=== PATIENT | male | born 1960 | race Caucasian/White ===

== ENCOUNTER → 2021-08-27 13:03 | Outpatient (BNVA) | payer OTHER, SELFPAY | PROVIDERS: Family Provider Family Medicine; PCP Family Medicine; Visit Provider Internal Medicine | DX: I10 Essential (primary) hypertension (principal); R01.1 Cardiac murmur, unspecified; E78.5 Hyperlipidemia, unspecified; Z87.891 Personal history of nicotine dependence | CPT/HCPCS: 99203; 99204 ==

== ENCOUNTER 2021-10-29 07:41 | Outpatient (CLI) | payer OTHER, SELFPAY ==
--- NOTE | 2021-10-29 07:15 | USCV_ITS ---
Sharif Chung Age: 61 Gender: M : 1960 Exam Date: 10/29/2021 07:59 Ordering Phys: Kelvin Aleman M.D ([email or web address]) Technologist: Exam Location: [facility] Indication: chest pain BP: 134 / 84 HR: 64 Rhythm: Sinus Technical Quality: Adequate MEASUREMENTS (Male / Female) Normal Values 2D ECHO LV Diastolic Diameter PLAX 4.3 cm 4.2 - 5.9 / 3.9 - 5.3 cm LV Systolic Diameter PLAX 2.9 cm IVS Diastolic Thickness 1.4 cm 0.6 - 1.0 / 0.6 - 0.9 cm IVS Systolic Thickness 1.5 cm LVPW Diastolic Thickness 1.4 cm 0.6 - 1.0 / 0.6 - 0.9 cm LVPW Systolic Thickness 1.5 cm LVOT Diameter 2.1 cm LV Ejection Fraction 2D Teich 59.2 % LV Ejection Fraction MOD 2C 65.4 % LV Ejection Fraction 2C AL 66.3 % LA Diameter 4.1 cm Aorta at Sinotubular Diameter 3.0 cm IVC Diameter 2.2 cm M-MODE Aortic Annulus Diameter 3.1 cm LA Ao Ratio MM 1.5 MV E Point Septal Separation 0.8 cm DOPPLER AV Peak Velocity 221.0 cm/s LVOT Peak Velocity 129.0 cm/s AV Area Cont Eq vti 2.0 cm squared AV Area Cont Eq pk 1.9 cm squared MV Area PHT 5.0 cm squared Mitral E to A Ratio 0.8 MV E' Velocity 46.5 cm/s Mitral E to MV E' Ratio 7.3 Mitral E to LV E' Lateral Ratio 6.6 Mitral E to LV E' Septal Ratio 8.1 TR Peak Velocity 192.5 cm/s TR Peak Gradient 14.8 mmHg TV Peak E Velocity 85.0 cm/s Right Atrial Pressure 3.0 mmHg Pulmonary Artery Systolic Pressu 17.8 mmHg PV Peak Velocity 77.0 cm/s RV Acceleration Time 0.1 s FINDINGS Left Ventricle Left ventricle is normal in size. LV systolic function is normal with EF of 60 to 65%. No regional wall motion abnormalities are seen. Right Ventricle RV is normal in size and function Right Atrium Normal in size Left Atrium Normal in size Mitral Valve Mitral valve is normal structurally. Mild mitral regurgitation Aortic Valve Structurally normal aortic valve. Mild to aortic stenosis with aortic valve area of 2cm square and mean gradient across aortic valve of 9.2 mmHg. Tricuspid Valve Mild tricuspid regurgitation. Pulmonary artery systolic pressure is normal Pulmonic Valve Not well-visualized Pericardium Normal Aorta Normal in size IVC IVC appears to be normal CONCLUSIONS LV systolic function is normal with EF of 60 to 65%. Mild mitral regurgitation. Mild aortic stenosis with aortic valve area of 2 cm. Mean gradient across aortic valve 9.2 mmHg Mild tricuspid l regurgitation No comparison studies are available Kelvin Aleman MD (Electronically Signed) Final Date: 12 November 2021 15:19 S
== END 2021-10-29 07:42 | disposition home or self-care (01) ==
LOC: RAD 07:42
PROVIDERS: PCP Family Medicine; Visit Provider Internal Medicine
DX: I08.3 Combined rheumatic disorders of mitral, aortic and tricuspid valves (principal); R07.9 Chest pain, unspecified
CPT/HCPCS: 93306

== ENCOUNTER → 2021-11-27 12:28 | Outpatient (BNVA) | payer OTHER, SELFPAY | PROVIDERS: PCP Family Medicine; Visit Provider Internal Medicine | DX: I10 Essential (primary) hypertension (principal); E78.5 Hyperlipidemia, unspecified; I35.0 Nonrheumatic aortic (valve) stenosis; Z87.891 Personal history of nicotine dependence | CPT/HCPCS: 99213; 99214 ==

== ENCOUNTER → 2022-08-05 08:23 | Outpatient (BNVA) | payer OTHER, SELFPAY | PROVIDERS: PCP Family Medicine; Visit Provider Podiatrist Foot & Ankle Surgery | DX: M79.672 Pain in left foot (principal); M72.2 Plantar fascial fibromatosis; M24.572 Contracture, left ankle; M84.375A Stress fracture, left foot, initial encounter for fracture | CPT/HCPCS: 73630; 99204 ==

== ENCOUNTER → 2022-08-26 08:13 | Outpatient (BNVA) | payer OTHER, SELFPAY | PROVIDERS: PCP Family Medicine; Visit Provider Podiatrist Foot & Ankle Surgery | DX: M72.2 Plantar fascial fibromatosis (principal); M24.572 Contracture, left ankle | CPT/HCPCS: 99213 ==

== ENCOUNTER → 2022-12-26 09:19 | Outpatient (BNVA) | payer OTHER, SELFPAY | PROVIDERS: PCP Family Medicine; Visit Provider Internal Medicine Cardiovascular Disease | DX: I35.0 Nonrheumatic aortic (valve) stenosis (principal); E78.5 Hyperlipidemia, unspecified; I10 Essential (primary) hypertension | CPT/HCPCS: 99213 ==

== ENCOUNTER 2023-01-06 07:42 | Outpatient (CLI) | payer OTHER, SELFPAY ==
--- NOTE | 2023-01-06 06:15 | USCV_ITS ---
Sharif Chung Age: 62 Gender: M : 1960 Exam Date: 01/06/2023 06:23 Ordering Phys: Mathew Gonzalez MD Technologist: Judith Skinner Exam Location: [facility] [place] Indication: KNOWN RECHECK BP: 120 / 70 HR: 57 Rhythm: Sinus Technical Quality: Adequate MEASUREMENTS (Male / Female) Normal Values 2D ECHO LV Diastolic Diameter PLAX 3.9 cm 4.2 - 5.9 / 3.9 - 5.3 cm LV Systolic Diameter PLAX 2.5 cm LV Chamber Size 4.8 cm IVS Diastolic Thickness 1.3 cm 0.6 - 1.0 / 0.6 - 0.9 cm IVS Systolic Thickness 1.4 cm LVPW Diastolic Thickness 1.2 cm 0.6 - 1.0 / 0.6 - 0.9 cm LVPW Systolic Thickness 1.6 cm RV Chamber Size 4.9 cm LVOT Diameter 2.0 cm LV Ejection Fraction 2D Teich 59.6 % LV Ejection Fraction MOD 2C 54.5 % LV Ejection Fraction 2C AL 55.6 % LA Diameter 4.3 cm LA Width 2.5 cm LA Height 4.0 cm RA Width 3.8 cm RA Height 4.1 cm Aorta at Sinotubular Diameter 2.9 cm IVC Diameter 1.7 cm M-MODE Aortic Annulus Diameter 3.2 cm LA Ao Ratio MM 1.5 MV E Point Septal Separation 0.4 cm DOPPLER AV Peak Velocity 215.0 cm/s LVOT Peak Velocity 105.3 cm/s AV Area Cont Eq vti 1.5 cm squared AV Area Cont Eq pk 1.5 cm squared MV Area PHT 2.4 cm squared Mitral E to A Ratio 0.9 MV E' Velocity 45.5 cm/s Mitral E to MV E' Ratio 6.7 Mitral E to LV E' Lateral Ratio 5.9 Mitral E to LV E' Septal Ratio 7.7 TR Peak Velocity 241.7 cm/s TR Peak Gradient 23.4 mmHg TR Mean Velocity 180.1 cm/s TR Mean Gradient 14.7 mmHg TR Velocity Time Integral 66.0 cm TV Peak E Velocity 62.0 cm/s Right Atrial Pressure 3.0 mmHg Pulmonary Artery Systolic Pressu 26.4 mmHg RV Acceleration Time 0.1 s RV Ejection Time 0.4 s RV AcT/ET 0.4 FINDINGS Left Ventricle Normal left ventricular size, systolic function and wall thickness, with no regional wall motion abnormalities. Left ventricular ejection fraction is estimated at 60 %. Right Ventricle Normal right ventricular size and systolic function. Right Atrium Normal right atrial size. Left Atrium Normal left atrial size. Mitral Valve Structurally normal mitral valve. Aortic Valve Structurally normal trileaflet aortic valve. Tricuspid Valve Structurally normal tricuspid valve. Trace tricuspid valve regurgitation. tricuspid valve regurgitation. Pulmonic Valve Structurally normal pulmonic valve. Mild pulmonary valve regurgitation. Pericardium No pericardial effusion. Aorta Normal size aortic root and proximal ascending aorta. IVC Normal IVC dimension with >50% respiratory change of the inferior vena cava. CONCLUSIONS Normal left ventricle systolic function. No LVH. LVEF estimated normal at 60%. Grade 1 diastolic dysfunction. Normal chamber sizes. No significant valvular abnormality noted. Normal right heart and pulmonary pressures. Karthik Lynne MD (Electronically Signed) Final Date: 06 January 2023 14:44 S
== END 2023-01-06 07:43 | disposition home or self-care (01) ==
LOC: RAD 07:42
PROVIDERS: PCP Family Medicine; Visit Provider Internal Medicine Cardiovascular Disease
DX: I35.0 Nonrheumatic aortic (valve) stenosis (principal); I51.89 Other ill-defined heart diseases
CPT/HCPCS: 93306

== ENCOUNTER 2023-11-06 10:14 | Outpatient (CLI) | payer OTHER, SELFPAY ==
--- NOTE | 2023-11-06 10:17 | CT_ITS ---
WS: [id number] CT ABDOMEN PELVIS TECHNIQUE: Noncontrast CT of the abdomen and contrast-enhanced CT of the abdomen and pelvis with joya nal and sagittal reformatted images. CLINICAL INFORMATION: HEMATURIA COMPARISON: None. DLP: 766.[address] scans at [facility] use at least one of these dose optimization techniques: automated e xposure control; mA and/or kV adjustment per patient size (includes targeted exams where dose is matc hed to clinical indication); or iterative reconstruction. FINDINGS: RIGHT lower pole/peripelvic renal cyst measuring 3.7 x 3.1 cm. No hydronephrosis in either kidney. Ti ny LEFT renal cortical cyst. No obstructing renal or ureteral calculi. Mild prostate enlargement with diffuse bladder wall thickening suspicious for bladder outlet obstruction versus chronic cystitis. P rostate measures 3.3 x 4.3 cm. Normal liver. Normal gallbladder. Normal spleen. Normal GE junction. Adrenal glands are normal. Nellie l pancreatic parenchymal enhancement. Normal caliber abdominal aorta. Mild aortic calcification. Small fat-containing LEFT inguinal hernia. Mild pancolonic constipation. Mild spondylitic changes lum bar spine. Chronic anterior wedging at the thoracolumbar junction. CT/CT abdomen pelvis wo/w [id number] IMPRESSION: 1. No hydronephrosis in either kidney. 2. RIGHT lower pole/peripelvic renal cortical cyst measuring 3.1 x 3.7 cm. 3. No obstructing renal or ureteral calculi. 4. Diffuse bladder wall thickening can be seen with chronic cystitis or bladde r outlet obstruction. Mild prostate enlargement. Recommend correlation PSA. 5. No other acute findings.
[2023-11-06 10:40] LABS: Blood Urea Nitrogen 5 mg/dL (8-23); Glomerular Filtration Rate 75.2 mL/min (90-130)
[2023-11-06] MEDS: iohexol 350 mg/mL 500 mL Btl (per mL) IV (10:49)
== END 2023-11-06 10:15 | disposition home or self-care (01) ==
LOC: RAD 10:14
PROVIDERS: PCP Family Medicine; Visit Provider Nurse Practitioner Family
DX: R31.9 Hematuria, unspecified (principal); N28.1 Cyst of kidney, acquired; N32.89 Other specified disorders of bladder; N40.0 Benign prostatic hyperplasia without lower urinary tract symptoms; I70.0 Atherosclerosis of aorta; K40.90 Unilateral inguinal hernia, without obstruction or gangrene, not specified as recurrent; K59.00 Constipation, unspecified; M46.86 Other specified inflammatory spondylopathies, lumbar region; M48.55XA Collapsed vertebra, not elsewhere classified, thoracolumbar region, initial encounter for fracture
CPT/HCPCS: 74178; 82565; 84520

== ENCOUNTER → 2024-01-11 11:06 | Outpatient (BNVA) | payer OTHER, SELFPAY | PROVIDERS: PCP Family Medicine; Visit Provider Internal Medicine | DX: I10 Essential (primary) hypertension (principal); E78.5 Hyperlipidemia, unspecified; I35.0 Nonrheumatic aortic (valve) stenosis; Z87.891 Personal history of nicotine dependence | CPT/HCPCS: 99214 ==

== ENCOUNTER 2024-01-26 06:02 | Outpatient (CLI) | payer OTHER, SELFPAY ==
--- NOTE | 2024-01-26 06:15 | USCV_ITS ---
Sharif Chung Age: 63 Gender: M : 1960 Exam Date: 01/26/2024 06:25 Ordering Phys: Kelvin Aleman M.D ([email or web address]) Technologist: Exam Location: [facility] [place] Indication: ? as BP: 130 / 80 HR: 60 Rhythm: Sinus Technical Quality: Adequate MEASUREMENTS (Male / Female) Normal Values 2D ECHO LV Diastolic Diameter PLAX 4.4 cm 4.2 - 5.9 / 3.9 - 5.3 cm IVS Diastolic Thickness 1.1 cm 0.6 - 1.0 / 0.6 - 0.9 cm IVS Systolic Thickness 1.7 cm LVPW Diastolic Thickness 1.2 cm 0.6 - 1.0 / 0.6 - 0.9 cm LVPW Systolic Thickness 1.9 cm LVOT Diameter 2.0 cm LV Ejection Fraction 2D Teich 63.5 % LV Ejection Fraction MOD 4C 59.6 % LV Ejection Fraction MOD 2C 65.3 % LV Ejection Fraction 2C AL 64.4 % LA Diameter 3.6 cm RA Systolic Volume 4C AL 61.4 ml RA Systolic Volume 4C MOD 60.6 ml Aorta at Sinotubular Diameter 3.2 cm IVC Diameter 2.4 cm M-MODE LA Ao Ratio MM 1.3 AV Cusp Separation MM 1.6 cm DOPPLER AV Peak Velocity 198.8 cm/s LVOT Peak Velocity 90.0 cm/s AV Area Cont Eq vti 1.9 cm squared AV Area Cont Eq pk 1.5 cm squared MV Area PHT 4.8 cm squared Mitral E to A Ratio 1.2 TV Peak Velocity 282.0 cm/s TR Peak Velocity 290.0 cm/s TR Peak Gradient 33.6 mmHg TV Peak E Velocity 105.0 cm/s PV Peak Velocity 130.0 cm/s FINDINGS Left Ventricle Left ventricle is normal in size. LV systolic function is normal with LVEF of 55- 60%. No regional wall motion abnormalities. Right Ventricle Normal in size and function Right Atrium Normal in size Left Atrium Dilated Mitral Valve Structurally normal mitral valve. Mild mitral regurgitation. Aortic Valve Aortic valve is thickened and calcified. No significant stenosis. Tricuspid Valve Mild tricuspid regurgitation. RVSP is 35-40mmHg. This is consistent with mild pulmonary hypertension. Pulmonic Valve Not well visualized Pericardium Normal Aorta Normal in size IVC Appears to be normal CONCLUSIONS LV systolic function is normal with EF of 55 to 60%. Left atrial dilation Mild mitral regurgitation Mild tricuspid regurgitation Mild pulmonary hypertension Kelvin Aleman MD (Electronically Signed) Final Date: 30 January 2024 17:39 S
== END 2024-01-26 06:03 | disposition home or self-care (01) ==
PROVIDERS: PCP Family Medicine; Visit Provider Internal Medicine
DX: I35.8 Other nonrheumatic aortic valve disorders (principal); R01.1 Cardiac murmur, unspecified
CPT/HCPCS: 93306

== ENCOUNTER 2024-08-22 06:33 | Outpatient (CLI) | payer OTHER, SELFPAY ==
--- NOTE | 2024-08-22 06:43 | USCV_ITS ---
Sharif Chung Age: 64 Gender: M : 1960 Exam Date: 08/22/2024 06:46 Ordering Phys: Carmen Faustin MD Technologist: SIGRID [place] [facility] [place]: AAA Screening HISTORY: Diameter (cm) AP x Transverse x Length Velocity (cm/s) Waveform Prox Aorta: 2.00 x 2.10 x 80.00 Triphasic Mid Aorta: 1.80 x 1.70 x 104.50 Triphasic Distal Aorta: 1.90 x 1.80 x 92.70 Triphasic Right Iliac Prox: 1.30 x 1.30 x 71.30 Triphasic Left Iliac Prox: 1.01 x 1.25 x 108.10 Triphasic Stent Prox Landing x x Aneurysmal Sac Max x x Lt Lat Sac Dim Rt Lat Sac Dim Stent Dist Landing x x Right Iliac Stent x x Left Iliac Stent x x Right Renal Art Left Renal Art FINDINGS: CONCLUSIONS No evidence of abdominal aortic or bilateral iliac aneurysm. Minimal arteriovascular disease within the abdominal aorta. Hank Putnam MD (Electronically Signed) Final Date: 22 August 2024 09:04 S
== END 2024-08-22 06:34 | disposition home or self-care (01) ==
LOC: RAD 06:34
PROVIDERS: PCP Family Medicine; Visit Provider Family Medicine
DX: Z13.6 Encounter for screening for cardiovascular disorders (principal)
CPT/HCPCS: 76706

== ENCOUNTER 2024-10-20 19:31 | Emergency (ER) | payer OTHER, SELFPAY ==
--- OUTSIDE RECORDS SUMMARY | 2009-04-25 03:30 | XMS_ITS | Continuity of Care Document ---
Author Organization [facility] Address [address] [address] [place] [address] Phone Care Team Providers Care Incident Response Consultant Name Role Phone Consuelo AMEZCUA MD, [place] Unavailable Unavailab le Procedures Procedure Date OFFICE/OUTPATIENT VISIT, [facility] SPECIAL EYE EXAM, INITIAL Advance Directives Directive Yes / No Effective Date File Name No Information Encounters Encounter Description Practice Location Reason(s) For Visit Diagnoses Date Provider Providers Copied on Encounter OFFICE/OUTPAT IENT VISIT, [facility], [address], [place], [place], [id number], [place] tel:[phone] [phone] Office No Information 0 Consuelo Ledezma. [address], [place], [place], [id number] , [place]. tel:[phone] Family History Family Member Type Diagnosis Age At Onset No Information Payers Payer name Insurance type Covered green party ID Authoriza tion(s) Workmans Compensation [id number] Social History Type Description Quantity Date Captured Comments Sex Male Smoking Status No Information Chief Complaint And Reason For Visit No Information Reason For Referral Reason For Referral No Information History Of Present Illness Encounter Date Complaint History Of Prese nt Illness No Information Functional Status Date Functional Assessmen t No Information Instructions Date Instruction Additional Infor mation No Information Assessments Type Assessment Date No Information Patient Care Teams Name Effective Dates (start - stop) Status Members No Information
--- OUTSIDE RECORDS SUMMARY | 2015-10-19 04:00 | XMS_ITS | Continuity of Care Document ---
Author Organization [facility] Address [address] [place] [address] [place] [phone] Phone Care Team Providers Care Stove Installer Name Role Phone Marry Hoffmann Unavailable Unavailable Procedures Procedure Date WORK CONDITIONING INITIAL 2 HOURS WORK COND/WORK HARD RE EVAL WORK CONDITIONING INITIAL 2 HOURS WORK CONDITIONING INITIAL 2 HOURS WORK CONDITIONING ADD'L HRS WORK CONDITIONING INITIAL 2 HOURS WORK CONDITIONING ADD'L HRS WORK CONDITIONING INITIAL 2 HOURS WORK CONDITIONING ADD'L HRS WORK CONDITIONING INITIAL 2 HOURS WORK CONDITIONING ADD'L HRS WORK CONDITIONING INITIAL 2 HOURS WORK CONDITIONING ADD'L HRS WORK CONDITIONING INITIAL 2 HOURS WORK CONDITIONING ADD'L HRS WORK COND/WORK HARD RE EVAL WORK CONDITIONING INITIAL 2 HOURS WORK CONDITIONING INITIAL 2 HOURS WORK CONDITIONING INITIAL 2 HOURS WORK CONDITIONING ADD'L HRS WORK CONDITIONING INITIAL 2 HOURS WORK CONDITIONING ADD'L HRS WORK CONDITIONING INITIAL 2 HOURS WORK CONDITIONING ADD'L HRS WORK CONDITIONING INITIAL 2 HOURS WORK CONDITIONING ADD'L HRS WORK CONDITIONING INITIAL 2 HOURS WORK CONDITIONING ADD'L HRS THERAPEUTIC EXERCISES NEUROMUSCULAR RE-ED MANUAL THERAPY FUNC ACTIVITY WORK CONDITIONING INITIAL 2 HOURS WORK CONDITIONING ADD'L HRS Work Cond Initial Report WORK CONDITIONING INITIAL 2 HOURS THERAPEUTIC EXERCISES NEUROMUSCULAR RE-ED MANUAL THERAPY FUNC ACTIVITY HOT/COLD PACK THERAPEUTIC EXERCISES NEUROMUSCULAR RE-ED MANUAL THERAPY FUNC ACTIVITY PT RE-EVALUATION THERAPEUTIC EXERCISES NEUROMUSCULAR RE-ED MANUAL THERAPY FUNC ACTIVITY THERAPEUTIC EXERCISES NEUROMUSCULAR RE-ED MANUAL THERAPY FUNC ACTIVITY HOT/COLD PACK THERAPEUTIC EXERCISES FUNC ACTIVITY HOT/COLD PACK THERAPEUTIC EXERCISES NEUROMUSCULAR RE-ED FUNC ACTIVITY HOT/COLD PACK THERAPEUTIC EXERCISES NEUROMUSCULAR RE-ED FUNC ACTIVITY HOT/COLD PACK THERAPEUTIC EXERCISES NEUROMUSCULAR RE-ED FUNC ACTIVITY HOT/COLD PACK THERAPEUTIC EXERCISES NEUROMUSCULAR RE-ED FUNC ACTIVITY HOT/COLD PACK THERAPEUTIC EXERCISES NEUROMUSCULAR RE-ED FUNC ACTIVITY HOT/COLD PACK ELECTRIC STIMULATION UNATT THERAPEUTIC EXERCISES NEUROMUSCULAR RE-ED FUNC ACTIVITY THERAPEUTIC EXERCISES NEUROMUSCULAR RE-ED FUNC ACTIVITY THERAPEUTIC EXERCISES NEUROMUSCULAR RE-ED FUNC ACTIVITY HOT/COLD PACK THERAPEUTIC EXERCISES NEUROMUSCULAR RE-ED FUNC ACTIVITY HOT/COLD PACK THERAPEUTIC EXERCISES NEUROMUSCULAR RE-ED FUNC ACTIVITY HOT/COLD PACK THERAPEUTIC EXERCISES NEUROMUSCULAR RE-ED FUNC ACTIVITY HOT/COLD PACK THERAPEUTIC EXERCISES NEUROMUSCULAR RE-ED FUNC ACTIVITY THERAPEUTIC EXERCISES NEUROMUSCULAR RE-ED FUNC ACTIVITY THERAPEUTIC EXERCISES NEUROMUSCULAR RE-ED FUNC ACTIVITY THERAPEUTIC EXERCISES NEUROMUSCULAR RE-ED FUNC ACTIVITY HOT/COLD PACK THERAPEUTIC EXERCISES NEUROMUSCULAR RE-ED MANUAL THERAPY FUNC ACTIVITY HOT/COLD PACK THERAPEUTIC EXERCISES NEUROMUSCULAR RE-ED MANUAL THERAPY FUNC ACTIVITY HOT/COLD PACK THERAPEUTIC EXERCISES NEUROMUSCULAR RE-ED MANUAL THERAPY FUNC ACTIVITY HOT/COLD PACK THERAPEUTIC EXERCISES NEUROMUSCULAR RE-ED MANUAL THERAPY FUNC ACTIVITY THERAPEUTIC EXERCISES NEUROMUSCULAR RE-ED MANUAL THERAPY FUNC ACTIVITY HOT/COLD PACK THERAPEUTIC EXERCISES NEUROMUSCULAR RE-ED MANUAL THERAPY FUNC ACTIVITY HOT/COLD PACK THERAPEUTIC EXERCISES NEUROMUSCULAR RE-ED MANUAL THERAPY FUNC ACTIVITY THERAPEUTIC EXERCISES NEUROMUSCULAR RE-ED MANUAL THERAPY FUNC ACTIVITY THERAPEUTIC EXERCISES MANUAL THERAPY FUNC ACTIVITY HOT/COLD PACK MISC SUPPLY THERAPEUTIC EXERCISES MANUAL THERAPY FUNC ACTIVITY THERAPEUTIC EXERCISES MANUAL THERAPY FUNC ACTIVITY HOT/COLD PACK THERAPEUTIC EXERCISES MANUAL THERAPY FUNC ACTIVITY HOT/COLD PACK THERAPEUTIC EXERCISES MANUAL THERAPY FUNC ACTIVITY HOT/COLD PACK PT EVALUATION THERAPEUTIC EXERCISES HOT/COLD PACK WORK COND/WORK HARD RE EVAL WORK CONDITIONING INITIAL 2 HOURS WORK CONDITIONING INITIAL 2 HOURS WORK CONDITIONING ADD'L HRS WORK CONDITIONING INITIAL 2 HOURS WORK CONDITIONING ADD'L HRS WORK CONDITIONING INITIAL 2 HOURS WORK CONDITIONING ADD'L HRS WORK CONDITIONING INITIAL 2 HOURS WORK CONDITIONING ADD'L HRS WORK CONDITIONING INITIAL 2 HOURS WORK CONDITIONING ADD'L HRS WORK CONDITIONING INITIAL 2 HOURS WORK CONDITIONING ADD'L HRS WORK CONDITIONING INITIAL 2 HOURS WORK CONDITIONING ADD'L HRS WORK CONDITIONING INITIAL 2 HOURS WORK CONDITIONING ADD'L HRS WORK COND/WORK HARD EVAL WORK CONDITIONING INITIAL 2 HOURS THERAPEUTIC EXERCISES NEUROMUSCULAR RE-ED FUNC ACTIVITY HOT/COLD PACK THERAPEUTIC EXERCISES NEUROMUSCULAR RE-ED FUNC ACTIVITY HOT/COLD PACK THERAPEUTIC EXERCISES NEUROMUSCULAR RE-ED FUNC ACTIVITY HOT/COLD PACK THERAPEUTIC EXERCISES NEUROMUSCULAR RE-ED FUNC ACTIVITY HOT/COLD PACK THERAPEUTIC EXERCISES NEUROMUSCULAR RE-ED FUNC ACTIVITY HOT/COLD PACK THERAPEUTIC EXERCISES NEUROMUSCULAR RE-ED FUNC ACTIVITY HOT/COLD PACK THERAPEUTIC EXERCISES NEUROMUSCULAR RE-ED FUNC ACTIVITY HOT/COLD PACK THERAPEUTIC EXERCISES NEUROMUSCULAR RE-ED HOT/COLD PACK THERAPEUTIC EXERCISES NEUROMUSCULAR RE-ED FUNC ACTIVITY HOT/COLD PACK THERAPEUTIC EXERCISES NEUROMUSCULAR RE-ED HOT/COLD PACK THERAPEUTIC EXERCISES NEUROMUSCULAR RE-ED MANUAL THERAPY HOT/COLD PACK THERAPEUTIC EXERCISES NEUROMUSCULAR RE-ED MANUAL THERAPY THERAPEUTIC EXERCISES NEUROMUSCULAR RE-ED MANUAL THERAPY THERAPEUTIC EXERCISES NEUROMUSCULAR RE-ED MANUAL THERAPY HOT/COLD PACK THERAPEUTIC EXERCISES NEUROMUSCULAR RE-ED MANUAL THERAPY THERAPEUTIC EXERCISES NEUROMUSCULAR RE-ED MANUAL THERAPY PT EVALUATION THERAPEUTIC EXERCISES HOT/COLD PACK OT RE-EVALUATION THERAPEUTIC EXERCISES NEUROMUSCULAR RE-ED MANUAL THERAPY FUNC ACTIVITY HOT/COLD PACK ELECTRIC STIMULATION UNATT THERAPEUTIC EXERCISES NEUROMUSCULAR RE-ED MANUAL THERAPY FUNC ACTIVITY HOT/COLD PACK ELECTRIC STIMULATION UNATT MISC SUPPLY THERAPEUTIC EXERCISES NEUROMUSCULAR RE-ED MANUAL THERAPY FUNC ACTIVITY HOT/COLD PACK ELECTRIC STIMULATION UNATT THERAPEUTIC EXERCISES NEUROMUSCULAR RE-ED MANUAL THERAPY FUNC ACTIVITY HOT/COLD PACK ELECTRIC STIMULATION UNATT THERAPEUTIC EXERCISES NEUROMUSCULAR RE-ED MANUAL THERAPY FUNC ACTIVITY HOT/COLD PACK ELECTRIC STIMULATION UNATT THERAPEUTIC EXERCISES NEUROMUSCULAR RE-ED MANUAL THERAPY FUNC ACTIVITY HOT/COLD PACK ELECTRIC STIMULATION UNATT THERAPEUTIC EXERCISES NEUROMUSCULAR RE-ED MANUAL THERAPY FUNC ACTIVITY HOT/COLD PACK ELECTRIC STIMULATION UNATT THERAPEUTIC EXERCISES NEUROMUSCULAR RE-ED MANUAL THERAPY FUNC ACTIVITY HOT/COLD PACK ELECTRIC STIMULATION UNA THERAPEUTIC EXERCISES NEUROMUSCULAR RE-ED MANUAL THERAPY FUNC ACTIVITY HOT/COLD PACK ELECTRIC STIMULATION UNATT THERAPEUTIC EXERCISES NEUROMUSCULAR RE-ED MANUAL THERAPY FUNC ACTIVITY HOT/COLD PACK ELECTRIC STIMULATION UNATT THERAPEUTIC EXERCISES NEUROMUSCULAR RE-ED MANUAL THERAPY FUNC ACTIVITY HOT/COLD PACK ELECTRIC STIMULATION UNATT THERAPEUTIC EXERCISES NEUROMUSCULAR RE-ED MANUAL THERAPY FUNC ACTIVITY HOT/COLD PACK ELECTRIC STIMULATION UNATT OT RE-EVALUATION THERAPEUTIC EXERCISES NEUROMUSCULAR RE-ED MANUAL THERAPY FUNC ACTIVITY HOT/COLD PACK ELECTRIC STIMULATION UNATT THERAPEUTIC EXERCISES NEUROMUSCULAR RE-ED MANUAL THERAPY FUNC ACTIVITY HOT/COLD PACK ELECTRIC STIMULATION UNATT THERAPEUTIC EXERCISES NEUROMUSCULAR RE-ED MANUAL THERAPY FUNC ACTIVITY HOT/COLD PACK ELECTRIC STIMULATION UNATT THERAPEUTIC EXERCISES NEUROMUSCULAR RE-ED MANUAL THERAPY FUNC ACTIVITY HOT/COLD PACK ELECTRIC STIMULATION UNATT THERAPEUTIC EXERCISES NEUROMUSCULAR RE-ED MANUAL THERAPY FUNC ACTIVITY HOT/COLD PACK ELECTRIC STIMULATION UNATT THERAPEUTIC EXERCISES NEUROMUSCULAR RE-ED MANUAL THERAPY FUNC ACTIVITY HOT/COLD PACK ELECTRIC STIMULATION UNATT THERAPEUTIC EXERCISES NEUROMUSCULAR RE-ED MANUAL THERAPY FUNC ACTIVITY HOT/COLD PACK ELECTRIC STIMULATION UNATT THERAPEUTIC EXERCISES NEUROMUSCULAR RE-ED MANUAL THERAPY FUNC ACTIVITY HOT/COLD PACK ELECTRIC STIMULATION UNATT THERAPEUTIC EXERCISES NEUROMUSCULAR RE-ED MANUAL THERAPY FUNC ACTIVITY HOT/COLD PACK ELECTRIC STIMULATION UNATT THERAPEUTIC EXERCISES NEUROMUSCULAR RE-ED MANUAL THERAPY FUNC ACTIVITY HOT/COLD PACK ELECTRIC STIMULATION UNATT THERAPEUTIC EXERCISES NEUROMUSCULAR RE-ED MANUAL THERAPY FUNC ACTIVITY HOT/COLD PACK ELECTRIC STIMULATION UNATT THERAPEUTIC EXERCISES NEUROMUSCULAR RE-ED MANUAL THERAPY FUNC ACTIVITY HOT/COLD PACK ELECTRIC STIMULATION UNATT OT RE-EVALUATION THERAPEUTIC EXERCISES NEUROMUSCULAR RE-ED MANUAL THERAPY FUNC ACTIVITY HOT/COLD PACK ELECTRIC STIMULATION UNATT THERAPEUTIC EXERCISES NEUROMUSCULAR RE-ED MANUAL THERAPY FUNC ACTIVITY HOT/COLD PACK ELECTRIC STIMULATION UNATT Theraputty THERAPEUTIC EXERCISES NEUROMUSCULAR RE-ED MANUAL THERAPY FUNC ACTIVITY HOT/COLD PACK ELECTRIC STIMULATION UNATT THERAPEUTIC EXERCISES NEUROMUSCULAR RE-ED MANUAL THERAPY FUNC ACTIVITY HOT/COLD PACK ELECTRIC STIMULATION UNATT THERAPEUTIC EXERCISES NEUROMUSCULAR RE-ED MANUAL THERAPY FUNC ACTIVITY HOT/COLD PACK ELECTRIC STIMULATION UNATT THERAPEUTIC EXERCISES NEUROMUSCULAR RE-ED MANUAL THERAPY FUNC ACTIVITY HOT/COLD PACK ELECTRIC STIMULATION UNATT THERAPEUTIC EXERCISES NEUROMUSCULAR RE-ED MANUAL THERAPY FUNC ACTIVITY HOT/COLD PACK ELECTRIC STIMULATION UNATT Isotoner Glove Silicone Gel Sheet 3x4 Isotoner Glove Silicone Gel Sheet 3x4 THERAPEUTIC EXERCISES NEUROMUSCULAR RE-ED MANUAL THERAPY FUNC ACTIVITY HOT/COLD PACK ELECTRIC STIMULATION UNATT THERAPEUTIC EXERCISES NEUROMUSCULAR RE-ED MANUAL THERAPY FUNC ACTIVITY HOT/COLD PACK ELECTRIC STIMULATION UNATT OT EVALUATION THERAPEUTIC EXERCISES MANUAL THERAPY FUNC ACTIVITY HOT/COLD PACK ELECTRIC STIMULATION UNATT ORTHOTIC FITTING Non-compressive stockinette per foot Jul Forearm ORTHOTIC FITTING ORTHOTIC FITTING THERAPEUTIC EXERCISES ORTHOTIC FITTING Micropore Tape Sterile Gauze Pad Sterile Gauze Roll Forearm OT EVALUATION THERAPEUTIC EXERCISES ORTHOTIC FITTING Non-compressive stockinette per foot May Sterile Gauze Pad Forearm Advance Directives Directive Yes / No Effective Date File Name No Information Encounters Encounter Description Practice Location Reason(s) For Visit Diagnoses Date Provider Providers Copied on Encounter [facility] [address], [id number], tel:[phone] [facility] No Information Sep-0 9 6 Amanda Tuttle. [address], [facility], . tel:[phone] Referring Provider: Mandi Spivey, [address] [address], [place], [address]. tel:[phone], [id number], tel:[phone] [facility] No Information Sep-0 7201 6 Eriberto Rabago. [address] [place] [address], [address], [email or web address] tel:[phone] Referring Provider: Mandi Spivey, [address], [address]. tel:[phone], [id number], tel:[phone] [facility] No Information Sep-0 6-201 6 Goldak Marry. [address] [place] [address], [facility] [address], [place], [facility], . tel:[phone] Referring Provider: Mandi Spivey, [address] [facility] [address], [place], [address]. tel:[phone], [id number], tel:[phone] [facility] No Information Sep-0 2-201 6 Goldak Marry. [address] [place] [address], [facility] [address], [place], [facility], . tel:[phone] Referring Provider: Mandi Spivey, [address] [facility] [address] [place] [address], [address]. tel:[phone], [id number], tel:[phone] [facility] No Information Sep-3 1- 6 Goldak Marry. [address] [place] [address], [place] [address], . tel:[phone] Referring Provider: Mandi Spivey, [address] [facility] [address], [place], [address]. tel:[phone], [id number], tel:[phone] [facility] No Information Aug-2 9 6 Goldak Marry. [address] [place] [address], [facility] [address], [place], [facility], . tel:[phone] Referring Provider: Mandi Spivey, [address], [address]. tel:[phone], [id number], tel:[phone] [facility] No Information 6 Goldak Marry. [address] [place] [address], [address], [facility], . tel:[phone] Referring Provider: Mandi Spivey, [address] [place] [address] [place] [address], [address]. tel:[phone], [id number], tel:[phone] [facility] No Information 6 Goldak Marry. [address] [place] [address], [address], [facility], . tel:[phone] Referring Provider: Mandi Spivey, [address] [place] [address], [address]. tel:[phone], [id number], tel:[phone] [facility] No Information 6 Weirich Hima. [address] [place] [address], [address], [facility], . tel:[phone] Referring Provider: Mandi Spivey, [address] [facility] [address] [place] [address], [address]. tel:[phone], [id number], tel:[phone] [facility] No Information 6 Goldak Marry. [address] [place] [address], [address], [place], [facility], . tel:[phone] Referring Provider: Mandi Spivey, [address] [facility] [address] [place] [address], [address]. tel:[phone], [id number], tel:[phone] [facility] No Information 6 Dejanhussein Tuttle. [address] [place] [address], [address] [place] [address], [facility], . tel:[phone] Referring Provider: Mandi Spivey, [address], [address]. tel:[phone], [id number], tel:[phone] [facility] No Information 6 Dejanhussein Messinaan. [address] [place] [address], [address], [facility], . tel:[phone] Referring Provider: Mandi Spivey, [address] [place] [address] [place] [address], [address]. tel:[phone], [id number], [place] tel:[phone] [facility] No Information 6 Dejanhussein Messinaan. [address] [place] [address], [address], [facility], . tel:[phone] Referring Provider: Mandi Spivey, [address] [facility] [address] [place] [address], [address]. tel:[phone], [id number], [place] tel:[phone] [facility] No Information 6 Eriberto Rabago. [address] [place] [address], [address] [place] [address], [facility], . tel:[phone] Referring Provider: Mandi Spivey, [address], [address]. tel:[phone] [facility], [address], [id number], tel:[phone] [facility] No Information 6 Danuta Franky. [address] [place] [address], [address], [place], [facility], . tel:[phone] Referring Provider: Mandi Spivey, [address] [facility] Suite [facility], [place], [place], [facility]. tel:[phone] [facility] [address] [place] [address], [id number], tel:[phone] [facility] No Information 6 Amanda Tuttle. [address] [place] [address], [address] [place] [address], [facility], . tel:[phone] Referring Provider: Mandi Spivey, [address] [place] [address] [address] [facility], [place], [facility]. tel:[phone] [facility] [address] [place] [address], [id number], tel:[phone] [facility] Muscle weakness (generalized) 6 Eriberto Rabago. [address] [place] [address], [address] [place] [address], [facility], . tel:[phone] Referring Provider: Mandi Spivey, [address] [facility] [address] [facility], [place], [facility]. tel:[phone], [id number], tel:[phone] [facility] No Information 6 Isrrael Otero. [address] [place] [address], [address], [place], [facility], . tel:[phone] Referring Provider: Mandi Spivey, [address] [facility] Suite [facility], [place], [address]. tel:[phone], [id number], tel:[phone] [facility] No Information Aug-0 8-201 6 Enrique Joey. [address] [place] [address], [address], [place], [facility], . tel:[phone] Referring Provider: Mandi Spivey, [address] [place] [address] [address], [place], [address]. tel:[phone], [id number], tel:[phone] [facility] No Information 0 5-201 6 Eva Branden. [address] [place] [address], [address], [place], [facility], . tel:[phone] Referring Provider: Mandi Spivey, [address] [place] [address] [address] [facility], [place], [address]. tel:[phone], [id number], tel:[phone] [facility] No Information 0 1-201 6 Eva Branden. [address] [place] [address], [address], [place], [facility], [place]. tel:[phone] Referring Provider: Mandi Spivey, [address] [place] [address] [address], [place], [address]. tel:[phone], [id number], tel:[phone] [facility] No Information 2 4-201 6 Enrique Joey. [address] [place] [address], [address], [place], [facility], [place]. tel:[phone] Referring Provider: Mandi Spivey, [address] [place] [address] [address], [place], [address]. tel:[phone], [place], [place], [id number], tel:[phone] [facility] No Information 2 0-201 6 Eva Branden. [address] [place] [address], [address], [place], [facility], . tel:[phone] Referring Provider: Mandi Spivey, [address] [facility] [address], [place], [address]. tel:[phone], [id number], tel:[phone] [facility] No Information 7-[address] [facility], [address], [place], [place], [facility], . tel:[phone] Referring Provider: Mandi Spivey, [address] [facility] [address], [place], [address]. tel:[phone], [id number], tel:[phone] [facility] No Information 5-201 6 Eva Branden. [address] [place] [address], [address], [place], [facility], . tel:[phone] Referring Provider: Mandi Spivey, [address] [facility] [address], [place], [address]. tel:[phone], [id number], tel:[phone] [facility] No Information 3-201 6 Eva Branden. [address] [place] [address], [address], [place], [facility], . tel:[phone] Referring Provider: Mandi Spivey, [address] [facility] [address], [place], [address]. tel:[phone], [id number], tel:[phone] [facility] No Information 0-[address] [facility], [address], [place], [facility], . tel:[phone] Referring Provider: Mandi Spivey, [address] [facility] [address], [place], [address]. tel:[phone], [id number], tel:[phone] [facility] No Information Richard-0 8-201 6 Enrique Joey. [address] [place] [address], [address], [place], [facility], . tel:[phone] Referring Provider: Mandi Spivey, [address] [facility] [address], [place], [address]. tel:[phone], [id number], tel:[phone] [facility] No Information Richard-0 6-201 6 Enrique Joey. [address] [place] [address], [address], [place], [facility], . tel:[phone] Referring Provider: Mandi Spivey, [address] [place] [address] [address], [place], [address]. tel:[phone], [id number], [place] tel:[phone] [facility] No Information Jul-0 1-201 6 Eva Branden. [address] [place] [address], [address], [place], [facility], . tel:[phone] Referring Provider: Mandi Spivey, [address] [facility] [address], [place], [address]. tel:[phone], [id number], tel:[phone] [facility] No Information 7-201 6 Eva Branden. [address] [place] [address], [address], [place], [facility], . tel:[phone] Referring Provider: Mandi Spivey, [address] [facility] [address], [place], [address]. tel:[phone] [address], [place], [id number], tel:[phone] [facility] No Information June-2 5-[address] [facility], [address], [place], [facility], . tel:[phone] Referring Provider: Mandi Spivey, [address] [facility] [address], [place], [address]. tel:[phone] [address], [place], [id number], tel:[phone] [facility] No Information June-2 3-201 6 Eva Branden. [address] [place] [address], [address], [place], [facility], . tel:[phone] Referring Provider: Mandi Spivey, [address] [facility] [address], [place], [address]. tel:[phone], [id number], tel:[phone] [facility] No Information June-2 0-201 6 Enrique Joey. [address] [place] [address], [address], [place], [facility], . tel:[phone] Referring Provider: Mandi Spivey, [address] [facility] [address], [place], [address]. tel:[phone], [id number], tel:[phone] [facility] No Information June-1 8-201 6 Eva Branden. [address] [place] [address], [address], [place], [facility], . tel:[phone] Referring Provider: Mandi Spivey, [address] [facility] [address], [place], [address]. tel:[phone], [id number], tel:[phone] [facility] No Information May-1 6-201 6 Eva Branden. [address] [place] [address], [address], [place], [facility], . tel:[phone] Referring Provider: Mandi Spivey, [address] [facility] [address], [place], [address]. tel:[phone], [id number], tel:[phone] [facility] No Information May-1 1-201 6 Eva Branden. [address] [place] [address], [address], [place], [facility], . tel:[phone] Referring Provider: Mandi Spivey, [address] [facility] [address], [place], [place], [facility]. tel:[phone], [id number], tel:[phone] [facility] No Information May-0 9-201 6 Eva Branden. [address] [place] [address], [address], [place], [facility], [place]. tel:[phone] Referring Provider: Mandi Spivey, [address] [facility] [address], [place], [address]. tel:[phone] [address], [place], [address], [place] tel:[phone] [facility] No Information May-0 4-201 6 Eva Branden. [address] [place] [address], [address], [place], [facility], [place]. tel:[phone] Referring Provider: Mandi Spivey, [address] [facility] [address], [place], [address]. tel:[phone], [id number], tel:[phone] [facility] No Information May-0 2-201 6 Eva Branden. [address] [place] [address], [address], [place], [facility], . tel:[phone] Referring Provider: Mandi Spivey, [address] [facility] [address], [place], [address]. tel:[phone], [id number], tel:[phone] [facility] No Information Apr-2 9-201 6 Eva Branden. [address] [place] [address], [address], [place], [place], [facility], . tel:[phone] Referring Provider: Mandi Spivey, [address] [facility] [address], [place], [address]. tel:[phone], [id number], tel:[phone] [facility] No Information Apr-2 7-201 6 Eva Branden. [address] [place] [address], [address], [place], [facility], . tel:[phone] Referring Provider: Mandi Spivey, [address] [facility] [address], [place], [address]. tel:[phone], [id number], tel:[phone] [facility] No Information Apr-2 5-201 6 Eva Branden. [address] [place] [address], [address], [place], [facility], . tel:[phone] Referring Provider: Mandi Spivey, [address] [facility] [address], [place], [address]. tel:[phone], [id number], [place] tel:[phone] [facility] No Information Apr-2 2-201 6 Eva Branden. [address] [place] [address], [address], [place], [facility], . tel:[phone] Referring Provider: Mandi Spivey, [address] [facility] [address], [place], [address]. tel:[phone] [address], [place], [place], [address], tel:[phone] [facility] No Information Apr-2 0-201 6 Eva Branden. [address] [place] [address], [address], [place], [facility], . tel:[phone] Referring Provider: Mandi Spivey, [address] [facility] [address], [place], [address]. tel:[phone] [address], [place], [place], [address], tel:[phone] [facility] No Information May-1 8-201 6 Enrique Joey. [address] [place] [address], [address], [place], [place], [facility], . tel:[phone] Referring Provider: Mandi Spivey, [address] [facility] [address], [place], [address]. tel:[phone] [address], [place], [place], [address], tel:[phone] [facility] No Information May-1 5-201 6 Enrique Joey. [address] [place] [address], [address], [place], [facility], [place]. tel:[phone] Referring Provider: Mandi Spivey, [address] [facility] [address], [place], [address]. tel:[phone], [place], [place], [address], tel:[phone] [facility] No Information May-1 1-201 6 Eva Branden. [address] [place] [address], [address], [place], [facility], . tel:[phone] Referring Provider: Mandi Spivey, [address] [facility] [address], [place], [address]. tel:[phone], [place], [place], [address], tel:[phone] [facility] No Information Apr-0 8-201 [address] [facility], [address], [place], [address], [place]. tel:[phone] Referring Provider: Mandi Spivey, [address] [facility] Suite [facility], [place], [address]. tel:[phone] [address] [address], [place], [place], [address], [place] tel:[phone] [facility] No Information Apr-0 6-[address] [facility], [address], [place], [address], [place]. tel:[phone] Referring Provider: Mandi Spivey, [address] [facility] Suite [facility], [place], [address]. tel:[phone], [id number], [place] tel:[phone] [facility] No Information Apr-0 4-201 6 Isrrael Otero. [address] [place] [address], [address], [place], [address], [place]. tel:[phone] Referring Provider: Mandi Spivey, [address] [facility] Suite [facility], [place], [address]. tel:[phone] [address], [place], [place], [id number], [place] tel:[phone] [facility] Fusion of spine, lumbar regionWeaknes sUnspecified abnormalities of gait and mobility Apr-0 1-201 [address] [facility], [address], [place], [address], [place]. tel:[phone] Referring Provider: Mandi Spivey, [address] [facility] [address], [place], [address]. tel:[phone] [address] [address], [place], [place], [address], [place] tel:[phone] [facility] No Information Dec-3 0-201 5 Eriberto Rabago. [address] [place] [address], [address], [place], [facility], . tel:[phone] Referring Provider: Mandi Spivey, [address], [address]. tel:[phone], [id number], tel:[phone] [facility] No Information Dec-2 5 Amanda Tuttle. [address] [place] [address], [address], [place], [facility], [place]. tel:[phone] Referring Provider: Mandi Spivey, [address] [place] [address], [facility]. tel:[phone], [id number], tel:[phone] [facility] No Information Dec-2 5 Amanda Tuttle. [address] [place] [address], [address], [place], [facility], [place]. tel:[phone] Referring Provider: Mandi Spivey, [address] [place] [address] [place] [address], [address]. tel:[phone], [id number], tel:[phone] [facility] No Information Dec-2 5 Eriberto Rabago. [address] [place] [address], [address], [place], [facility], [place]. tel:[phone] Referring Provider: Mandi Spivey, [address], [address]. tel:[phone], [id number], tel:[phone] [facility] No Information Dec-2 3-201 5 Goldhussein Tuttle. [address] [place] [address], [facility] [address], [place], [facility], . tel:[phone] Referring Provider: Mandi Spivey, [address], [address]. tel:[phone], [id number], tel:[phone] [facility] No Information Dec-2 2-201 5 Goldak Marry. [address] [place] [address], [address], [facility], . tel:[phone] Referring Provider: Mandi Spivey, [address] [facility] [address] [place] [address], [address]. tel:[phone], [id number], tel:[phone] [facility] No Information Jan-2 1- 5 Goldak Marry. [address] [place] [address], [address], [facility], . tel:[phone] Referring Provider: Mandi Spivey, [address] [facility] [address] [place] [address], [address]. tel:[phone], [id number], tel:[phone] [facility] No Information Jan- 8- 5 Goldak Marry. [address] [place] [address], [address], [facility], . tel:[phone] Referring Provider: Mandi Spivey, [address] [facility] [address], [place], [address]. tel:[phone], [id number], tel:[phone] [facility] No Information Dec-1 7-201 5 Goldak Marry. [address] [place] [address], [address], [facility], . tel:[phone] Referring Provider: Mandi Spivey, [address] [facility] [address], [place], [address]. tel:[phone], [id number], tel:[phone] [facility] CervicalgiaTo rticollisOthe r reduced mobility Jan- 5 Eriberto Rabago. [address] [place] [address], [address], [place], [facility], . tel:[phone] Referring Provider: Mandi Spivey, [address] [facility] [address], [place], [address]. tel:[phone], [id number], tel:[phone] [facility] No Information 5 Isrrael Otero. [address] [place] [address], [address], [place], [facility], . tel:[phone] Referring Provider: Mandi Spivey, [address] [facility] [address], [place], [address]. tel:[phone], [id number], tel:[phone] [facility] No Information 5 Isrrael Otero. [address] [place] [address], [address], [place], [facility], . tel:[phone] Referring Provider: Mandi Spivey, [address] [facility] [address], [place], [address]. tel:[phone], [id number], tel:[phone] [facility] No Information 5 Isrrael Otero. [address] [place] [address], [address], [place], [facility], . tel:[phone] Referring Provider: Mandi Spivey, [address] [facility] [address], [place], [address]. tel:[phone], [id number], tel:[phone] [facility] No Information Dec-0 7-201 5 Isrrael Otero. [address] [place] [address], [address], [place], [facility], . tel:[phone] Referring Provider: Mandi Spivey, [address] [facility] [address], [place], [address]. tel:[phone] [address] [address], [place], [place], [address], tel:[phone] [facility] No Information Dec-0 4-201 5 Enrique Cook. [address] [place] [address], [address], [place], [facility], . tel:[phone] Referring Provider: Mandi Spivey, [address] [place] [address] Suite [facility], [place], [place], [facility]. tel:[phone], [id number], [place] tel:[phone] [facility] No Information Dec-0 2-201 5 Isrrael Otero. [address] [place] [address], [address], [place], [facility], . tel:[phone] Referring Provider: Mandi Spivey, [address] [facility] Suite [facility], [place], [address]. tel:[phone], [id number], tel:[phone] [facility] No Information Dec-2 7-201 5 Isrrael Otero. [address] [place] [address], [address], [place], [facility], . tel:[phone] Referring Provider: Mandi Spivey, [address] [facility] [address], [place], [address]. tel:[phone] [address], [place], [place], [address], [place] tel:[phone] [facility] No Information 2 5-[address] [facility], [address], [place], [facility], . tel:[phone] Referring Provider: Mandi Spivey, [address] [facility] [address], [place], [address]. tel:[phone] [address] [address], [place], [place], [address], tel:[phone] [facility] No Information 2 3-201 5 Enrique Joey. [address] [place] [address], [address], [place], [facility], [place]. tel:[phone] Referring Provider: Mandi Spivey, [address] [place] [address] [address], [place], [address]. tel:[phone] [address] [address], [place], [place], [address], tel:[phone] [facility] No Information 2 0-201 5 Enrique Joey. [address] [place] [address], [address], [place], [facility], [place]. tel:[phone] Referring Provider: Mandi Spivey, [address] [facility] [address], [place], [address]. tel:[phone], [id number], tel:[phone] [facility] No Information 8-201 5 Eva Branden. [address] [place] [address], [address], [place], [facility], [place]. tel:[phone] Referring Provider: Mandi Spivey, [address] [facility] [address], [place], [address]. tel:[phone], [place], [place], [address], tel:[phone] [facility] No Information 6-201 5 Eva Branden. [address] [place] [address], [address], [place], [facility], . tel:[phone] Referring Provider: Mandi Spivey, [address] [facility] Suite [facility], [place], [address]. tel:[phone], [id number], tel:[phone] [facility] No Information 1 3-201 5 Eva Branden. [address] [place] [address], [address], [place], [facility], . tel:[phone] Referring Provider: Mandi Spivey, [address] [facility] Suite [facility], [place], [address]. tel:[phone], [id number], tel:[phone] [facility] No Information 1-201 5 Eva Branden. [address] [place] [address], [address], [place], [facility], [place]. tel:[phone] Referring Provider: Mandi Spivey, [address] [facility] [address], [place], [address]. tel:[phone], [id number], tel:[phone] [facility] No Information Nov-0 9-201 5 Eva Branden. [address] [place] [address], [address], [place], [facility], . tel:[phone] Referring Provider: Mandi Spivey, [address] [facility] [address], [place], [address]. tel:[phone], [id number], tel:[phone] [facility] No Information Nov-0 6-201 5 Eva Branden. [address] [place] [address], [address], [place], [address], . tel:[phone] Referring Provider: Mandi Spivey, [address] [facility] [address], [place], [address]. tel:[phone], [id number], tel:[phone] [facility] Fusion of spine, cervical regionPain, unspecifiedSt iffness of unspecified joint, not elsewhere classifiedOth er specified dorsopathies, cervical region Nov- 5 Isrrael Otero. [address] [place] [address], [address], [place], [facility], [place]. tel:[phone] Referring Provider: Mandi Spivey, [address] [facility] [address], [place], [address]. tel:[phone], [place], [place], [address], tel:[phone] [facility] Postsurgical arthrodesis status 5 Buerkle Marry. [address] [place] [address], [address], [place], [facility], [place]. tel:[phone] Referring Provider: Tan Sandhu, [address], [place], [address]. tel:[phone], [place], [place], [address], tel:[phone] [facility] No Information 5 Buerkle Marry. [address] [place] [address], [address], [place], [facility], [place]. tel:[phone] Referring Provider: Tan Sandhu, [address], [place], [address]. tel:[phone], [id number], tel:[phone] [facility] No Information Oct- [address] [facility], [address], [place], [address], . tel:[phone] Referring Provider: Tan Sandhu, [address], [place], [address]. tel:[phone], [place], [place], [address], tel:[phone] [facility] No Information Sep-1 1-201 5 Diana trevino Laly. [address] [place] [address], [address], [place], [facility], . tel:[phone] Referring Provider: Tan Sandhu, [address], [place], [address]. tel:[phone] [address], [place], [place], [address], tel:[phone] [facility] No Information Sep-0 9-201 5 Santiagoerkle Marry. [address] [place] [address], [address], [place], [facility], . tel:[phone] Referring Provider: Tan Sandhu, [address], [place], [address]. tel:[phone] [address], [place], [place], [address], tel:[phone] [facility] No Information Sep-0 4-201 5 Gurwinder Solorzano. [address] [place] [address], [address], [place], [facility], . tel:[phone] Referring Provider: Tan Sandhu, [address], [place], [address]. tel:[phone], [place], [place], [address], [place] tel:[phone] [facility] No Information Sep-0 2-201 5 Buerkle Marry. [address] [place] [address], [address], [place], [facility], . tel:[phone] Referring Provider: Tan Sandhu, [address], [place], [address]. tel:[phone], [place], [place], [address], [place] tel:[phone] [facility] No Information [address] [facility], [address], [place], [facility], . tel:[phone] Referring Provider: Tan Sandhu, [address], [place], [address]. tel:[phone] [facility] [address] [facility], [place], [address], [place] tel:[phone] [facility] No Information 5 Gurwinder Solorzano. [address] [place] [address], [address], [place], [facility], . tel:[phone] Referring Provider: Tan Sandhu, [address], [place], [address]. tel:[phone] [facility] [address] [facility], [place], [place], [address], tel:[phone] [facility] No Information [address] [facility], [address], [place], [facility], . tel:[phone] Referring Provider: Tan Sandhu, [address], [place], [address]. tel:[phone] [facility] [address] [facility], [place], [address], [place] tel:[phone] [facility] No Information [address] [facility], [address], [place], [address], [place]. tel:[phone] Referring Provider: Tan Sandhu, [address], [place], [address]. tel:[phone] [facility] [address], [place], [place], [address], [place] tel:[phone] [facility] No Information Sep 5 Abel Garcia. [address] [place] [address], [address], [place], [facility], . tel:[phone] Referring Provider: Tan Sandhu, [address], [place], [address]. tel:[phone], [place], [place], [address], tel:[phone] [facility] No Information 5 Benita Tuttle. [address] [place] [address], [address], [place], [facility], [place]. tel:[phone] Referring Provider: Tan Sandhu, [address], [place], [address]. tel:[phone], [place], [place], [address], tel:[phone] [facility] No Information 5 Nishantzenaidaabdirashid Messinaan. [address] [place] [address], [address], [place], [facility], [place]. tel:[phone] Referring Provider: Tan Sandhu, [address], [place], [address]. tel:[phone], [place], [place], [address], [place] tel:[phone] [facility] No Information 5 Abel Garcia. [address] [place] [address], [address], [place], [facility], [place]. tel:[phone] Referring Provider: Tan Sandhu, [address], [place], [address]. tel:[phone] [address], [place], [place], [address], tel:[phone] [facility] No Information 0- 5 Concha Cee. [address] [place] [address], [address], [place], [facility], . tel:[phone] Referring Provider: Tan Sandhu, [address], [place], [address]. tel:[phone], [place], [place], [address], tel:[phone] [facility] No Information 0 7 5 Tenny Jaye. [address] [place] [address], [address], [place], [facility], . tel:[phone] Referring Provider: Tan Sandhu, [address], [place], [address]. tel:[phone], [place], [place], [address], [place] tel:[phone] [facility] No Information 0 5- 5 Tenny Jaye. [address] [place] [address], [address], [place], [facility], . tel:[phone] Referring Provider: Tan Sandhu, [address], [place], [address]. tel:[phone], [place], [place], [address], [place] tel:[phone] [facility] No Information 0 5 Buerkle Marry. [address] [place] [address], [address], [place], [facility], . tel:[phone] Referring Provider: Tan Sandhu, [address], [place], [address]. tel:[phone], [place], [place], [address], [place] tel:[phone] [facility] No Information 1 5 Buerkle Marry. [address] [place], [place] [address], [address], [place], [place], [facility], . tel:[phone] Referring Provider: Tan Sandhu, [address], [place], [address]. tel:[phone], [place], [place], [address], tel:[phone] [facility] No Information 9-201 5 Buerkle Marry. [address] [place] [address], [address], [place], [place], [facility], . tel:[phone] Referring Provider: Tan Sandhu, [address], [place], [address]. tel:[phone] [facility] [address] [place], [place] [address], [place], [place], [address], tel:[phone] [facility] No Information 7-201 5 Buerkle Marry. [address] [place] [address], [address], [place], [place], [facility], . tel:[phone] Referring Provider: Tan Sandhu, [address], [place], [address]. tel:[phone] [facility] [address] [place], [place] [address], [place], [place], [address], tel:[phone] [facility] No Information 4-201 5 Oneida Hennessylarissa. [address] [place] [address], [address], [place], [facility], . tel:[phone] Referring Provider: Tan Sandhu, [address], [place], [address]. tel:[phone] [facility] [address] [place], [place] [address], [place], [place], [address], tel:[phone] [facility] No Information 0-201 5 Buerkle Marry. [address] [place] [address], [address], [place], [facility], . tel:[phone] Referring Provider: Tan Sandhu, [address], [place], [address]. tel:[phone] [facility] [address], [place], [place], [address], tel:[phone] [facility] No Information 7-201 [address] [facility], [address], [place], [place], [facility], . tel:[phone] Referring Provider: Tan Sandhu, [address], [place], [address]. tel:[phone] [address], [place], [place], [address], tel:[phone] [facility] No Information 5-201 5 Buerkle Marry. [address] [place] [address], [address], [place], [facility], . tel:[phone] Referring Provider: Tan Sandhu, [address], [place], [address]. tel:[phone] [address], [place], [place], [address], tel:[phone] [facility] No Information 3-201 5 Buerkle Marry. [address] [place] [address], [address], [place], [facility], . tel:[phone] Referring Provider: Tan Sandhu, [address], [place], [address]. tel:[phone] [address], [place], [place], [address], tel:[phone] [facility] No Information 0-201 5 Diana Ruffin. [address] [place] [address], [address], [place], [facility], . tel:[phone] Referring Provider: Tan Sandhu, [address], [place], [address]. tel:[phone], [place], [place], [address], tel:[phone] [facility] No Information 8-201 5 Gurwinder Laniera. [address] [place] [address], [address], [place], [facility], . tel:[phone] Referring Provider: Tan Sandhu, [address], [place], [address]. tel:[phone], [place], [place], [address], tel:[phone] [facility] No Information Jonny-0 6-201 5 Buerkle Marry. [address] [place] [address], [address], [place], [facility], . tel:[phone] Referring Provider: Tan Sandhu, [address], [place], [address]. tel:[phone], [place], [place], [address], tel:[phone] [facility] No Information Jonny-0 2-201 5 Buerkle Marry. [address] [place] [address], [address], [place], [facility], . tel:[phone] Referring Provider: Tan Sandhu, [address], [place], [address]. tel:[phone], [place], [place], [address], tel:[phone] [facility] No Information Jonny-0 2-201 5 Buerkle Marry. [address] [place] [address], [address], [place], [facility], . tel:[phone] Referring Provider: Tan Sandhu, [address], [place], [address]. tel:[phone], [place], [place], [address], tel:[phone] [facility] No Information Jonny-0 1-201 5 Buerkle Marry. [address] [place] [address], [address], [place], [facility], . tel:[phone] Referring Provider: Tan Sandhu, [address], [place], [address]. tel:[phone] [address], [place], [place], [address], tel:[phone] [facility] No Information Richard-2 9- 5 Benita Tuttle. [address] [place] [address], [address], [place], [facility], . tel:[phone] Referring Provider: Tan Sandhu, [address], [place], [address]. tel:[phone] [address], [place], [place], [address], tel:[phone] [facility] No Information Richard-2 6- 5 Santiagoneelamabdirashid Tuttle. [address] [place] [address], [address], [place], [facility], . tel:[phone] Referring Provider: Tan Sandhu, [address], [place], [address]. tel:[phone] [address], [place], [place], [address], tel:[phone] [place] No Information Richard-0 -201 5 Danis Lin. [address] [place] [address], [address], [place], [facility], . tel:[phone] Referring Provider: Tan Sandhu, [address], [place], [address]. tel:[phone] [address], [place], [place], [address], tel:[phone] [place] No Information June-0 5-201 5 Tigre Tellez. [address] [place] [address], [address], [place], [facility], . tel:[phone] Referring Provider: Tan Sandhu, [address], [place], [address]. tel:[phone] [address], [place], [place], [address], tel:[phone] [place] No Information 2 0-[address] [facility], [address], [place], [facility], . tel:[phone] Referring Provider: Tan Sandhu, [address], [place], [address]. tel:[phone], [place], [place], [address], tel:[phone] [place] No Information 5-201 [address] [facility], [address], [place], [facility], . tel:[phone] Referring Provider: Tan Sandhu, [address], [place], [address]. tel:[phone], [place], [place], [address], tel:[phone] [place] Pain in joint involving handPain in limb 3-[address] [facility], [address], [place], [facility], . tel:[phone] Referring Provider: Tan Sandhu, [address], [place], [address]. tel:[phone] Family History Family Member Type Diagnosis Age At Onset No Information Payers Payer name Insurance type Covered libertarian ID Authoriza tion(s) [employer] SP [id number] Social History Type Description Quantity Date Captured [...]
--- OUTSIDE RECORDS SUMMARY | 2019-06-15 08:30 | XMS_ITS | Continuity of Care Document ---
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 [address] , [place], [place], [address], [place]. tel:[phone] Referring Provider: Marleen Spviey, [address] [facility] [address], [place], [address]. tel:[phone] Family History Family Member Type Diagnosis Age At Onset No Information Payers Payer name Insurance type Covered green party ID Authoriza tion(s) No Information Social History Type Description Quantity Date Captured [...]
--- OUTSIDE RECORDS SUMMARY | 2024-10-20 19:39 | XMS_ITS | Patient Health Record ---
Author Organization [facility] Address [address] [place] [address] Care Team Providers Care Clinical Documentation Manager Name Role Phone Carmen Everett MD Primary Care Provider Unavaila graham MANCUSOSURI HOFFMANN Unavailable [phone] Ca, Humphreys Unavailable Unavailable Geoff Linton Unavailable [phone] Allergies No Known Allergies Results Component Value Reference Range Notes Urinalysis, Routine Reviewed date:11/16/2023 01:34:52 PM Interpretation: Performing Lab: Notes/Report: Urine-Color yellow Appearance clear Glucose - Bilirubin - Ketones - Specific [place] 1.005 Occult Blood - pH 6.0 Urine Protein - Urobilinogen,Semi-Qn - Nitrite, Urine - WBC Esterase - Urinalysis, Routine Reviewed date:10/28/2023 10:10:31 AM Interpretation: Performing Lab: Notes/Report: Urine-Color reddish brown Appearance clear Glucose - Bilirubin - Ketones - Specific [place] 1.010 Occult Blood 3+ pH 6.0 Urine Protein 2+ Urobilinogen,Semi-Qn - Nitrite, Urine - WBC Esterase - Reason For Referral No Information Medications Medication SIG (Take, Route, Frequency, Duration) Notes Start Date End Date Status Tamsulosin HCl 0.4 MG 1 capsule Orally O nce a day Active Rosuvastatin Calcium 20 MG 1 tablet Oral ly Once a day Active Amitriptyline HCl 50 MG 1 tablet at bedt duane Orally Once a day Active SUMAtriptan 5 MG/ACT 1 spray at onset of headache in one nostril may repeat dose after 2 hours as needed Nasally Once a day Active Losartan Potassium 100 MG 1 tablet Orall y Once a day Active amLODIPine Besylate 10 MG 1 tablet Orall y Once a day Active Social History Tobacco Use: Social History Observation Description Date Details (start date - stop date) Former Smoker NA - NA Tobacco Control (Standard) Question Answer Notes Tobacco use: Former smoker How long has it been since you last smoked? 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 (N28.1) Active confirmed Problem Benign prostatic hypertrophy with outflow obstruction (574118319) BPH loc w urin obs/LUTS (N40.1) Active confirmed Vital Signs Heart Rate 68 /min 03/22/2024 Blood pressure diastolic 94 mm Hg 03/22/2024 Height-cm 170.18 cm 03/22/2024 Weight-kg 74.84 kg 03/22/2024 Height 67 in 03/22/2024 Blood pressure systolic 148 mm Hg 03/22/2024 Weight 165 lbs 03/22/2024 BMI 25.84 kg/m2 03/22/2024 Procedures Procedure Date Ordered Date Performed Result Body Sit e Bladder Scan 10/28/2023 10/28/2023 N/A UroFlow 03/22/2024 N/A Bladder Scan 03/22/2024 03/22/2024 N/A Encounters Encounter Location Date Provider Diagnosis [employer], [facility] [address] [place] [address] 10/28/2023 Geoff Pevril Hematuria R31.9 and History of nephrolithiasis Z87.442 [employer], [facility] [address] [place] [address] 11/16/2023 SURI ASHBY Hematuria R31.9 ; BP H loc w urin obs/LUTS N40.1 ; History of nephrolithiasis Z87.442 and Acquired renal cyst of right kidney N28.1 [employer], [facility] [address] [place] [address] 03/22/2024 Geoff Pevril Hematuria R31.9 ; BP H loc w urin obs/LUTS N40.1 ; History of nephrolithiasis Z87.442 and Acquired renal cyst of right kidney N28.1 Assessments Encounter Date Diagnosis (ICD Code) Assessment Notes Treatment Notes Treatment Clinical Notes Section Notes 10/28/2023 Hematuria (ICD-10 - R31.9) Given UA today, symptoms, and concerns, we discussed in consultation the indications and rationale for a hematuria workup including the possibility of the hematuria resulting from a malignancy or other acute process. In terms of the workup specifically, we discussed the need for evaluation of the upper urinary tracts with imaging and the lower urinary tract with cystoscopy. We will set up the CT scan without and with contrast and delayed imaging hematuria protocol. Orders placed. At next return we will do a scheduled cystoscopy and go over results of the CT at that point. Patient will need an updated PSA. For now, no further recommendations, and will await results of cystoscopy and CT imaging. Patient satisfied with plan. All questions that were asked, were answered. Patient requested CT to be completed at [facility], therefore imaging will need powershared once completed. 10/28/2023 History of nephrolithiasis (ICD-10 - Z87.442) Given UA today, symptoms, and concerns, we discussed in consultation the indications and rationale for a hematuria workup including the possibility of the hematuria resulting from a malignancy or other acute process. In terms of the workup specifically, we discussed the need for evaluation of the upper urinary tracts with imaging and the lower urinary tract with cystoscopy. We will set up the CT scan without and with contrast and delayed imaging hematuria protocol. Orders placed. At next return we will do a scheduled cystoscopy and go over results of the CT at that point. Patient will need an updated PSA. For now, no further recommendations, and will await results of cystoscopy and CT imaging. Patient satisfied with plan. All questions that were asked, were answered. Patient requested CT to be completed at [facility], therefore imaging will need powershared once completed. 03/22/2024 Hematuria (ICD-10 - R31.9) 63 y/o M with h/o nephrolithiasis, hematuria, BPH with LUTS. We discussed previous hematuria workup with CT shows a bening right renal cyst and cysto shows a 3.2cm bilobar obstructing prostate with hypervascularity. Uroflow: Peak effect at 6.8 ml/s with voided volume of 110.7 ml. PVR of 52cc. Patient is emptying well with improved LUTS while on flomax and would like to continue. However, We discussed the concept of maximal medical management of BPH as well as possible treatment with a transurethral procedure if worsening symptoms, and may consider further workup in the future. We will continue conservatively with Flomax for his urinary complaints. Side effects again reviewed. Refill as needed. At this time, he is currently not in urinary retention. No complaints of pain. Plan for 1 year follow up and symptom reassessment with noninvasive urodynamics. For now and through shared decision making, we are in agreement of no need for further workup. All questions that were asked, were answered. Patient satisfied with plan. 11/16/2023 Hematuria (ICD-10 - R31.9) 63 y/o M with h/o nephrolithiasis, hematuria, BPH with LUTS. CT shows a bening right renal cyst. Cysto shows a 3.2cm bilobar obstructing prostate with hypervascularity. CT and cysto findings reviewed. Pt states flomax is helping his LUTS. Plan: continue flomax -RTC in 4 months with Gissel Linton with IPSS, PVR, and FR -all questions answered 11/16/2023 BPH loc w urin obs/LUTS (ICD-10 - N40.1) 63 y/o M with h/o nephrolithiasis, hematuria, BPH with LUTS. CT shows a bening right renal cyst. Cysto shows a 3.2cm bilobar obstructing prostate with hypervascularity. CT and cysto findings reviewed. Pt states flomax is helping his LUTS. Plan: continue flomax -RTC in 4 months with Gissel Linton with IPSS, PVR, and FR -all questions answered 03/22/2024 BPH loc w urin obs/LUTS (ICD-10 - N40.1) 63 y/o M with h/o nephrolithiasis, hematuria, BPH with LUTS. We discussed previous hematuria workup with CT shows a bening right renal cyst and cysto shows a 3.2cm bilobar obstructing prostate with hypervascularity. Uroflow: Peak effect at 6.8 ml/s with voided volume of 110.7 ml. PVR of 52cc. Patient is emptying well with improved LUTS while on flomax and would like to continue. However, We discussed the concept of maximal medical management of BPH as well as possible treatment with a transurethral procedure if worsening symptoms, and may consider further workup in the future. We will continue conservatively with Flomax for his urinary complaints. Side effects again reviewed. Refill as needed. At this time, he is currently not in urinary retention. No complaints of pain. Plan for 1 year follow up and symptom reassessment with noninvasive urodynamics. For now and through shared decision making, we are in agreement of no need for further workup. All questions that were asked, were answered. Patient satisfied with plan. 11/16/2023 History of nephrolithiasis (ICD-10 - Z87.442) 63 y/o M with h/o nephrolithiasis, hematuria, BPH with LUTS. CT shows a bening right renal cyst. Cysto shows a 3.2cm bilobar obstructing prostate with hypervascularity. CT and cysto findings reviewed. Pt states flomax is helping his LUTS. Plan: continue flomax -RTC in 4 months with Gissel Linton with IPSS, PVR, and FR -all questions answered 11/16/2023 Acquired renal cyst of right kidney (ICD-10 - N28.1) 63 y/o M with h/o nephrolithiasis, hematuria, BPH with LUTS. CT shows a bening right renal cyst. Cysto shows a 3.2cm bilobar obstructing prostate with hypervascularity. CT and cysto findings reviewed. Pt states flomax is helping his LUTS. Plan: continue flomax -RTC in 4 months with Gissel Peluizail with IPSS, PVR, and FR -all questions answered 03/22/2024 History of nephrolithiasis (ICD-10 - Z87.442) 63 y/o M with h/o nephrolithiasis, hematuria, BPH with LUTS. We discussed previous hematuria workup with CT shows a bening right renal cyst and cysto shows a 3.2cm bilobar obstructing prostate with hypervascularity. Uroflow: Peak effect at 6.8 ml/s with voided volume of 110.7 ml. PVR of 52cc. Patient is emptying well with improved LUTS while on flomax and would like to continue. However, We discussed the concept of maximal medical management of BPH as well as possible treatment with a transurethral procedure if worsening symptoms, and may consider further workup in the future. We will continue conservatively with Flomax for his urinary complaints. Side effects again reviewed. Refill as needed. At this time, he is currently not in urinary retention. No complaints of pain. Plan for 1 year follow up and symptom reassessment with noninvasive urodynamics. For now and through shared decision making, we are in agreement of no need for further workup. All questions that were asked, were answered. Patient satisfied with plan. 03/22/2024 Acquired renal cyst of right kidney (ICD-10 - N28.1) 63 y/o M with h/o nephrolithiasis, hematuria, BPH with LUTS. We discussed previous hematuria workup with CT shows a bening right renal cyst and cysto shows a 3.2cm bilobar obstructing prostate with hypervascularity. Uroflow: Peak effect at 6.8 ml/s with voided volume of 110.7 ml. PVR of 52cc. Patient is emptying well with improved LUTS while on flomax and would like to continue. However, We discussed the concept of maximal medical management of BPH as well as possible treatment with a transurethral procedure if worsening symptoms, and may consider further workup in the future. We will continue conservatively with Flomax for his urinary complaints. Side effects again reviewed. Refill as needed. At this time, he is currently not in urinary retention. No complaints of pain. Plan for 1 year follow up and symptom reassessment with noninvasive urodynamics. For now and through shared decision making, we are in agreement of no need for further workup. All questions that were asked, were answered. Patient satisfied with plan. Plan Of Treatment Pending Test Test Name Order Date UroFlow 03/22/2024 Blood Urea Nitrogen (BUN) 10/28/2023 Creatinine Serum 10/28/2023 CT Abdomen, Pelvis w/ + w/o Contrast--[id number] 10/28/2023 Next Appt Details Provider Name:Geoff Shaila, 03/24/2025 08:00:00 AM, [address] [place], [address], Insurance Providers Payer Name Payer Address Payer Phone Subscriber Number Group Number Insured Name Patient Relationship to Insured Coverage Start Date Coverage End Date [employer] [address] [place], [place] [id number] Sharif Chung Self - patient is the insured Medical (General) History Medical History History ICD Code high cholesterol HTN blood in urine UTI kidney stone waking to urinate at night Surgical History Surgery Date(Month/Year) appendix removed 1965 Hospitalization History Reason Date(Month/Year) see surgries
[2024-10-20 19:43] VITALS: BP 153/90; PULSE 88; RESP 17; TEMP 36.7; O2SAT 99; BMI 25.8
[2024-10-20] MEDS: HYDROcodone-acetaminophen 7.5-325 mg Tablet 2 TAB PO (21:06)
[2024-10-20 21:10] VITALS: BP 120/69; PULSE 95; RESP 16; O2SAT 97
--- NOTE | 2024-10-21 00:30 | ED_ITS ---
HPI - General Adult General: Chief complaint: General Medical Stated complaint: Has trouble with hemrroids Time Seen by Provider: 10/20/24 19:45 Source: patient Mode of arrival: ambulatory Limitations: no limitations History of Present Illness: Patient is a 64-year-old male who presents to the emergency department complaining of rectal pain and swelling for the past 2 days. States he has a history of hemorrhoids but never this severe. Has not taken any medications, has never required procedure for thrombosed hemorrhoids in the past. Pain worse with sitting, states he only gets relief when lying on his side. No significant abdominal pain, no fever, no lightheadedness or dizziness or syncopal episodes. Vital stable at this time. Reporting severe pain. MD complaint: Rectal pain, hemorrhoid Onset (ago): day(s) Associated symptoms: Deny chest pain, diaphoresis, dyspnea, headache(s), nausea, rash, palpitations or vomiting Related Data Home Medications ?Medication ?Instructions ?Recorded ?Confirmed amitriptyline 50 mg tablet 50 mg PO DAILY 08/27/2104/04 amlodipine 10 mg tablet 10 mg PO DAILY 08/27/2104/04 losartan 100 mg tablet 100 mg PO DAILY 08/27/2104/04 aspirin 81 mg chewable tablet 81 mg PO DAILY 11/27/21 01/11/24 rosuvastatin 5 mg tablet (Crestor) 5 mg PO DAILY 01/1001/11/24 Previous Rx's ?Medication ?Instructions ?Recorded hydrocodone 7.5 mg-acetaminophen 1 tab PO Q8H PRN pain #14 tabs 10/20/24 325 mg tablet hydrocortisone 1 % topical cream 1 applic topical VERONICA Y PRN 10/20/24 hemorrhoids #28.4 grams polyethylene glycol 3350 17 4 g PO DAILY #119 grams gram/dose oral powder (Miralax) Allergies Allergy/AdvReac Type Severity Reaction Status Date / Time No Known Allergies Allergy Verified 01/11/24 11:19 Review of Systems General: Reports: 10 or more systems reviewed and unremarkable except in HPI and below Const: Denies: fever(s), chills, change in appetite, change in weight or diaphoresis ENMT: Denies: throat pain or hoarseness Card: Denies: chest pain, palpitations or lightheadedness Resp: Denies: dyspnea, productive cough or wheezing GI: Reports: pain on defecation and rectal pain; Denies: abdominal pain, nausea, vomiting, diarrhea, constipation, bloating, change in stool character or hematochezia : Denies: flank pain, difficulty urinating, dysuria, urinary frequency or urinary urgency Musc: Denies: neck pain or back pain Skin/Breast: Denies: rash or new lesions Neuro: Denies: headache(s) or dizziness PFSH ED PFSH: Medical History Cardiac murmur, unspecified Essential (primary) hypertension Hyperlipidemia, unspecified Family History Father Hypertension Social History Smoking and tobacco/nicotine status: former use of tobacco/nicotine Alcohol intake: current Alcohol intake frequency: few times a month Substance/Drug Use: never Physical Exam Const: COMMON NORMALS: average body habitus, patient oriented x3, no limitations, healthy appearing, alert and well nourished GENERAL APPEARANCE: cooperative ORIENTATION/CONSCIOUSNESS: Yes awake OTHER: In distress, appearing uncomfortable Neck/C-Spine: COMMON NORMALS: full ROM, supple, no meningeal signs and no JVD Resp: COMMON NORMALS: normal respiratory effort, No retractions, No use of accessory muscles and clear to auscultation bilaterally AUSCULTATION: clear to auscultation bilaterally, no crackles, no rales, no rhonchi and no wheezes Cardio: COMMON NORMALS: no JVD, regular rate, regular rhythm, No gallops present (Cardio), No clicks present (Cardio), No murmurs present (Cardio), No rub (Cardio) and Peripheral pulses 2+ throughout RATE: regular rate RHYTHM: regular rhythm PERIPHERAL PULSES: Peripheral pulses 2+ throughout GI: COMMON NORMALS: Normal to inspection, nondistended, normoactive bowel sounds present, Soft to palpation, non-tender, No hepatosplenomegaly present and no masses AUSCULTATION: Yes normoactive bowel sounds PALPATION: Yes Soft to palpation, No Guarding due to palpation present (GI), No Rigid due to palpation and Yes No hepatosplenomegaly present OTHER: Small thrombosed external hemorrhoid noted, significant tender to palpation, no active bleeding Extremity: COMMON NORMALS: normal to inspection and full ROM Neuro: COMMON NORMALS: patient oriented x3, moves all extremities, no focal motor deficits and no sensory deficits noted SENSORIUM/ORIENTATION: Yes alert MENINGEAL SIGNS: Yes no meningeal signs Psych: COMMON NORMALS: mental status grossly normal, cooperative and speech normal SPEECH: Yes normal speech Skin: COMMON NORMALS: no rashes or lesions noted GENERAL SKIN EXAM: no rashes or lesions noted Course Vital Signs: Vital signs: Vital Signs Temperature 98.0 F 10/20/24 19:43 Pulse Rate 95 10/20/24 21:10 Respiratory Rate 16 10/20/24 21:10 Blood Pressure 120/69 10/20/24 21:10 Pulse Oximetry 97 10/20/24 21:10 Oxygen Delivery Me thod Room Air 10/20/24 19:43 MDM - General Adult Medical Decision Making Patient presents with clinical evidence of small thrombosed external hemorrhoid, he will be prescribed topical hydrocortisone, hydrocodone for pain, given MiraLAX and told to do sitz bath and ultimately will refer to general surgery as if this continues cause pain may require procedural excision. No concern for intra-abdominal pathology at this time and there is no active bleeding. Discha rged home. No radiology studies performed this visit Discharge Plan Discharge Patient Disposition: Home Clinical Impression: External hemorrhoid Condition: Stable Prescriptions: New hydrocortisone 1 % cream 1 applic topical DAILY PRN (Reason: hemorrhoids) Qty: 28.4 0RF polyethylene glycol 3350 [Miralax] 17 gram/dose powder 4 g PO DAILY Qty: 119 0RF hydrocodone-acetaminophen 7.5-325 mg tablet 1 tab PO Q8H PRN (Reason: pain) Qty: 14 0RF No Action rosuvastatin [Crestor] 5 mg tablet 5 mg PO DAILY amitriptyline 50 mg tablet 50 mg PO DAILY amlodipine 10 mg tablet 10 mg PO DAILY losartan 100 mg tablet 100 mg PO DAILY aspirin 81 mg tablet,chewable 81 mg PO DAILY Discharge Orders: Discharge ED (Routine); Ordered 10/20/24 Ordered By: Tan Cota Referrals: Carmen Faustin MD [Primary Care Provider, Family Practice] Patient Instructions: Patient Portal & [place] Instructions Activity Restrictions/Additional Instructions: External Hemorrhoid Discharge Instructions Diagnosis: External hemorrhoids Discharge Medications: - Hydrocodone-acetaminophen ([place]) for breakthrough pain - Hydrocortisone 1% topical cream - Polyethylene glycol (MiraLAX) Home Care and Conservative Measures: - Dietary Fiber and Fluid Intake: Encourage daily intake of 25?35 g of fiber (e.g., whole grains, fruits, vegetables) and adequate hydration. Increased fiber and fluids reduce constipation and straining, which are tobar contributors to hemorrhoidal symptoms. Fiber supplementation has been shown to decrease persistent symptoms and bleeding in hemorrhoidal disease.[1] https://doi.or g/10.1097/DCR.5126615458394697 [2] https://www.nej.org/doi/full/10.1056/DYRJmb0979026 - Stool Softener: Polyethylene glycol (MiraLAX) is recommended to maintain soft stools and prevent straining. This is supported as a first-line therapy for symptomatic hemorrhoids.[1] https://doi.org/10.1097/DCR.0235394654545069 [2] https://www.nej.org/doi/full/10.1056/HHUDpm0095786 - Topical Therapy: Hydrocortisone 1% cream may be applied to the affected area for symptomatic relief of pain, pruritus, and swelling. Topical corticosteroids are conditionally recommended for short-term use; prolonged use should be avoided due to risk of skin atrophy and sensitization.[1] https://doi.org/10.1097/DCR.7620713312119652 [3] https://jamanetwork.com/journals/samantha/fullarticle/10.1001/samantha.2025.32584?utm_so urce=openevidence&utm_medium=referral [4] https://pubmed.ncbi.nlm.nih.gov/80253623 - Analgesia: Hydrocodone-acetaminophen ([place]) may be used for breakthrough pain. Use the lowest effective dose for the shortest duration necessary. - Sitz Baths: Advise warm sitz baths for 10?15 minutes, 2?3 times daily, to provide symptomatic relief.[3] https://jamanetwork.com/journals/samantha/fullarticle/10.1001/samantha.2025.07833?utm_so urce=openevidence&utm_medium=referral [5] https://pubmed.ncbi.nlm.nih.gov/57176032 - Bowel Habits: Examination Grader to avoid straining, prolonged sitting on the toilet, and to respond promptly to the urge to defecate. These behavioral modifications are strongly recommended to reduce recurrence and symptom severity.[1] https://doi.org/10.1097/DCR.3207721037485172 [2] https://www.ne .org/doi/full/10.1056/TXVZiq4560648 - Hygiene: Maintain gentle perianal hygiene. Avoid harsh soaps or wipes; use water and pat dry. Activity: - Resume normal activities as tolerated. Avoid heavy lifting or activities that increase intra-abdominal pressure until symptoms resolve. Warning Signs: - Advise to seek prompt medical attention for severe or increasing pain, fever, purulent discharge, or significant rectal bleeding. Follow-Up and Referral: - A referral to general surgery has been placed for evaluation of persistent or recurrent symptoms, or if surgical intervention becomes necessary. Surgical excision may be considered for refractory cases or recurrent thrombosis.[3] h ttps://jamanetwork.com/journals/samantha/fullarticle/10.1001/samantha.2025.61178?utm_sou rce=openevidence&utm_medium=referral [1] https://doi.org/10.1097/DCR.5369135662068890 [6] https://doi.org/10.41486/ajg.0 690709308249777 Duration of Therapy: - Most patients experience symptom improvement within 5?8 days with conservative management. Continue conservative measures until symptoms resolve or as directed by the surgical team.[3] https://jamanetwork.com/journals/samantha/fullarticle/10.1001/samantha.2025.13523?utm_so urce=openevidence&utm_medium=referral Additional Notes: - Long-term use of topical corticosteroids should be avoided. - Shared decision-making regarding further interventions will be guided by symptom severity and patient preference.[1] https://doi.org/10.1097/DCR.1695491403871165 References: Recommendations are based on guidelines from the [place] [employer] Rectal Surgeons and recent reviews in SAMANTHA and The [place] Journal of Medicine.[3] https://jamanetwork.com/journals/samantha/fullarticle/10.1001/samantha.2025.43322?utm_so urce=openevidence&utm_medium=referral [1] https://doi.org/10.1097/DCR.9293489379602572 [2] https://www.nejm.org/doi/full/10.1056/QIVDwa9694160 References * The [place] [employer] Rectal Surgeons Clinical Practice Guidelines for the Management of Hemorrhoids https://doi.org/10.1097/DCR.7728974622566210 . Ana Luisa AT, Jules BR, Miriam AR, et al. Diseases of the Colon and Rectum. 2023;67(5):614-623. doi:10.1097/DCR.4859895039638586. * Hemorrhoids https://www.nejm.org/doi/full/10.1056/LQHPdp2987090 . Wali Funes. The [place] Journal of Medicine. 2014;371(10):944-51. doi:10.1056/RYHPge5269930. * Hemorrhoidal Disease https://jamanetwork.com/journals/samantha/fullarticle/10.1001/samantha.2025.48368?utm_ source=openevidence&utm_medium=referral . Iban NAIK. SAMANTHA. 2024;:3470050. doi:10.1001/samantha.2025.30314. * [place] [employer] Medical Position Statement: Diagnosis and Treatment of Hemorrhoids https://pubmed.ncbi.nlm.nih.gov/31634341 . Gastroenterology. 2004;126(5):1461-2. doi:10.1053/j.gastro.2004.03.001. * Hemorrhoids: Diagnosis and Treatment Options https://pubm ed.ncbi.nlm.nih.gov/00706340 . Sidra T, Flory K, Rm Urena. [employer]. 2018;97(3):172-179. * ACG Clinical Guidelines: Management of Benign Anorectal Disorders http s://doi.org/10.62374/ajg.2830537501001282 . Jaclyn A, Justin AE, Maria De Jesus B, et al. The [place] Journal of Gastroenterology. 2020;116(10):9799-1982. doi:10.16988/ajg.7501615594354428. Print Language: Hungarian Coding Level of Care Code ED Digital Account Manager for [employer]
--- NOTE | 2024-10-24 07:44 | DCPLANNER ---
messaged gen surg for er f/u
== END 2024-10-20 21:09 | disposition home or self-care (01) ==
PROVIDERS: Emergency Provider Physician Assistant; PCP Family Medicine
DX: K64.4 Residual hemorrhoidal skin tags (principal); Z79.82 Long term (current) use of aspirin; Z87.891 Personal history of nicotine dependence; E78.5 Hyperlipidemia, unspecified; I10 Essential (primary) hypertension
CPT/HCPCS: 99283; J9999

== ENCOUNTER → 2024-11-09 13:38 | Outpatient (BNVA) | payer OTHER, SELFPAY | PROVIDERS: PCP Family Medicine; Visit Provider Surgery | DX: K64.9 Unspecified hemorrhoids (principal) | CPT/HCPCS: 99204 ==

== ENCOUNTER 2024-11-21 11:56 | Day surgery (SDC) | payer OTHER, SELFPAY ==
[2024-11-21] VITALS (14 sets, daily range): BP systolic 100–168; BP diastolic 60–96; PULSE 46–83; RESP 16–20; TEMP 36.2–36.8; O2SAT 95–99; BMI 25.8
--- NOTE | 2024-11-21 12:32 | ANES.PREANE2 ---
Pre-Anesthetic Assessment Height/Weight: Height 1.7 m Weight 74.843 kg Temp Pulse Resp BP Pulse Ox O2 Del Method 98.2 F 83 17 168/96 97 Room Air 11/21/24 12:20 11/21/24 12:20 11/21/24 12:20 11/21/24 12:20 11/21/24 12:20 11/21/24 12:20 Operation Date: 11/21/24 13:50 Proposed Procedures p Exam Under Anesthesia Rectal Exam Under Anesthesia 68422 [id number] 87123 K64.9(Not Applicable) - Tan Winslow MD s POSSIBLE Hemorrhoidectomy(Not Applicable) - Tan Winslow MD Familial anesthetic complications: none Was Beta Melissa taken within 24 hours: N/A Was Clonidine taken within 24 hours: N/A Last intake: Intake Last Liquid Date 11/21/24 Last Liquid Time 08:00 Last Solid Date 11/20/24 Last Solid Time 16:00 Social No alcohol and No tobacco Exam alert, oriented x 3, clear to auscultation bilaterally and regular rate & rhythm Airway Mallampati: Class II CV/HEM Hypertension Anesthetic Plan ASA status: 2 Anesthesia: General Risk of > 500 ml blood loss (7ml/kg in children): No Medications/Allergies Home Medications ?Medication ?Instructions ?Recorded ?Confirmed ?Last Taken ?Type amitriptyline 50 mg tablet 50 mg PO DAILY 08/27/21 11/21/24 11/20/24 History amlodipine 10 mg tablet 10 mg PO DAILY 08/27/21 11/21/24 11/21/24 08:00 History losartan 100 mg tablet 100 mg PO DAILY 08/27/21 11/21/24 11/20/24 History rosuvastatin 5 mg tablet (Crestor) 5 mg PO DAILY 01/11/24 11/21/24 11/20/24 History hydrocortisone 1 % topical cream 1 applic topical DAILY PRN 10/20/24 11/17/24 11/17/24 Rx hemorrhoids #28.4 grams polyethylene glycol 3350 17 4 g PO DAILY #119 grams 10/20/24 11/17/24 11/17/24 Rx gram/dose oral powder (Miralax) tamsulosin 0.4 mg capsule 0.4 mg PO DAILY 11/17/24 11/21/24 11/20/24 History Allergies Allergy/AdvReac Type Severity Reaction Status Date / Time No Known Allergies Allergy Verified 11/09/24 13:44 Current Medications Generic Name Dose Route Start Last Admin Trade Name Freq PRN Reason Stop Dose Admin Sodium Chloride 1,000 mls @ 30 mls/hr 11/21/24 12:15 11/21/24 12:29 Sodium Chloride 0.9% IV 11/22/24 12:14 30 mls/hr .Q24H TAYLER Administration PFSH Anesthesia Medical History Cardiac murmur, unspecified Essential (primary) hypertension Hyperlipidemia, unspecified Family History Father Hypertension Social History Smoking and tobacco/nicotine status: former use of tobacco/nicotine Alcohol intake: current Alcohol intake frequency: few times a month Substance/Drug Use: never Data Anesthesia Cardiac Studies: Echocardiogram 01/26/24
[2024-11-21 12:59] LABS: Anion Gap 19.8 (5-19); Blood Urea Nitrogen 23 mg/dL (8-23); Calcium 8.9 mg/dL (8.5-10.5); Carbon Dioxide 21 mmol/L (22-29); Chloride 102 mmol/L (98-107); Creatinine Clr Calc Pharmacy 90.6214; Glucose 118 mg/dL (65-115); Osmolality Calculated 293 mOsm/kg (285-295); Potassium 3.8 mmol/L (3.5-5.1); Sodium 139 mmol/L (136-145)
--- NOTE | 2024-11-21 14:11 | P.HPUD_ITS ---
Surgery/Procedure H&P Update DATE OF PROCEDURE: November 21, 2024 DATE H&P PERFORMED: 11/09/24 H&P UPDATE INFORMATION: I have reviewed H&P completed within last 30 days, I have examined patient prior to procedure, No changes to prior documentation, H&P is in [facility] EMR on date indicated and Risks and benefits of the procedure reviewed PLANNED PROCEDURE: Operation Date: 11/21/24 13:50 Proposed Procedures p Exam Under Anesthesia Rectal Exam Under Anesthesia [id number] K64.9(Not Applicable) - Tan Winslow MD s POSSIBLE Hemorrhoidectomy(Not Applicable) - Tan Winslow MD
[2024-11-21] MEDS: ceFAZolin 2,000 mg SDV 2000 MG IVP (14:35)
[2024-11-21] MEDS: BUPivacaine 0.25% INJ 30 mL INJECTION (15:07)
[2024-11-21] MEDS: lidocaine-epi 1% 20 mL INJ INJECTION (15:07)
[2024-11-21] MEDS: lidocaine 2% jelly 1 APPLIC/6 ML TUBE TOPICAL (15:08)
--- NOTE | 2024-11-21 15:25 | P.OP_ITS ---
Operative Report Date of procedure: November 21, 2024 Pre-op diagnosis: Thrombosed external hemorrhoid Post-op diagnosis: Same Post-op findings: No evidence of internal hemorrhoids during these evaluation, there was a thrombosed sternal hemorrhoids on the right lateral aspect of the anal margin. The hemorrhoid measure about 2 cm Procedure done: Exam under anesthesia, hemorrhoidectomy Specimens removed/disposition: Hemorrhoid Surgeon: Tan Winslow MD Mangle Press Catcher: LIZA OR STaff Estimated blood loss: 5 Brief History: This is a 64-year-old male who presented to my office for hemorrhoidal pain. After discussion of all recent benefits decided to proceed to the OR for exam under anesthesia and excision Procedure: Patient was brought into the OR. General anesthesia was given. He was placed in the prone position. The perianal region was prepped and draped in the usual sterile fashion and timeout was conducted. 10 cc of local anesthesia was infiltrated around the anus. I then proceeded to do a digital rectal examination with appears normal, there was only a thrombosed hemorrhoid on the right lateral aspect of the anal margin measuring about 2 cm. I then placed a retractor inside of the anus and I was not able to identify any significant pathology. At this point I decided to proceed with excision of the hemorrhoid. I grabbed the hemorrhoid with the Allis clamp and then I then opened the skin in an elliptical fashion surrounding the whole hemorrhoid. I dissected the hemorrhoid from the subcutaneous tissue using blunt dissection to prevent injury to the sphincter. I then cauterized the outflow out of the hemorrhoid and the hemorrhoid was excised. The wound was irrigated hemostasis was verified. The wound was closed in layers using 3-0 Vicryl for subcutaneous tissue and I approximated the skin with 4-0 Monocryl to provide a better closure of the epidermis. Lidocaine gel was placed. At the end of the procedure all counts were correct the patient tolerated well the procedure was transferred to PACU in stable condition.
[2024-11-21] MEDS: HYDROmorphone 1 mg/mL INJ 1ml 0.25 MG IVP (15:53)
[2024-11-21] MEDS: oxyCODONE 5 mg IR Tab/Cap PO (16:29)
--- NOTE | 2024-11-21 19:15 | ANE.PACU2 ---
Inpatient post-anesthesia follow up: Airway intact: Yes Vital signs: Temperature 97.8 F Pulse Rate 64 Respiratory Rate 16 Blood Pressure 131/82 Pulse Oximetry 96 Oxygen Delivery Me thod Room Air Oxygen Flow Rate 8 Fraction of Inspir ed Oxygen Hydration adequate: Yes Nausea and vomiting: No Pain level: 1 Mental status: Baseline
== END 2024-11-21 17:15 | disposition home or self-care (01) ==
PROVIDERS: Anesthesiology; PCP Family Medicine; Visit Provider Surgery
PROC: (CPT 46320; principal; 2024-11-21 13:40)
PROC: (CPT 46320; 2024-11-21 13:40)
DX: K64.5 Perianal venous thrombosis (principal); I10 Essential (primary) hypertension; E78.5 Hyperlipidemia, unspecified; R01.1 Cardiac murmur, unspecified; Z87.891 Personal history of nicotine dependence
CPT/HCPCS: 46320; 80048; 88304; A4216; J0690; J1171; J2250; J2704; J2710; J3010; J3490; J7030; J9999

== ENCOUNTER → 2024-12-13 11:24 | Outpatient (BNVA) | payer OTHER, SELFPAY | PROVIDERS: PCP Family Medicine; Visit Provider Surgery | DX: Z98.890 Other specified postprocedural states (principal); R03.0 Elevated blood-pressure reading, without diagnosis of hypertension | CPT/HCPCS: 99024 ==

== ENCOUNTER → 2025-01-09 13:54 | Outpatient (BNVA) | payer OTHER, SELFPAY | PROVIDERS: PCP Family Medicine; Visit Provider Internal Medicine | DX: I10 Essential (primary) hypertension (principal); Z87.891 Personal history of nicotine dependence | CPT/HCPCS: 99213 ==